=== PATIENT | female | born 1955 | race Caucasian/White ===

== ENCOUNTER → 2017-01-24 17:03 | Outpatient (CLI) | payer MEDICARE ==
[2015-07-22 07:51] VITALS: BMI 27.3
[~2017-01-24 17:03] MED LIST: EFFEXOR75 MG PO; GEMFIBROZIL600 MG PO; GLUCOPHAGE1000 MG PO; HYDROCODONE-APA1 TAB PO; KLONOPIN1 MG PO; LEVAQUIN500 MG PO; LYRICA150 MG PO; MACROBID100 MG PO; MEDROL DOSE PACK4 MG PO; NORVASC10 MG PO; NORVASC5 MG PO; PLAVIX75 MG PO; PRAVACHOL20 MG PO; ROBAXIN-750750 MG PO; STERAPRED DS 1210 MG PO; SYNTHROID50 MCG PO; ZESTORETIC 20-1 EACH PO
== END | disposition home or self-care (01) ==
LOC: D.MAMMO 01-10 10:00
DX: Z12.31 Encounter for screening mammogram for malignant neoplasm of breast (principal)

== ENCOUNTER 2017-08-03 16:29 | Observation (INO) | payer MEDICARE ==
[~2017-08-03] VITALS: Ht 162.6 cm; Wt 72.6 kg
--- NOTE | ~2017-08-03 | OP ---
PATIENT NAME: PAULA HOLT MEDICAL RECORD: [id number] :55 LOCATION:[facility] ADMISSION DATE:08/03/17 SURGEON: JOHNSON GODWIN MD DATE OF OPERATION: 08/04/2017 PROCEDURES: 1. PTCA stent RCA. 2. Left heart catheterization. 3. Selective coronary angiography. 4. Left ventriculogram. 5. Bilateral selective renal arteries angiography. INDICATION: Angina and coronary artery disease. PROCEDURE IN DETAIL: After informed consent was obtained and after a detailed risks and benefits as well as alternative therapies, the patient elected to proceed with angiogram and angioplasty. The right radial area was prepped and draped in normal sterile fashion. Right radial artery was cannulated via modified Seldinger technique with placement of 6-Kazakh sheath. All catheter exchanged through the sheath. FINDINGS: 1. 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 No significant renal artery stenosis. 2. The left renal artery is a solitary artery off the aorta with no significant pressure damping, no renal artery stenosis. 3. The left ventriculogram was performed in standard 30-degree MUSE view reveals good cardiac wall motion throughout all segments. Overall ejection fraction is 60%. 4. The left main is with no significant angiographic disease. 5. Left anterior descending has a 70% to 80% stenosis in mid vessel, otherwise only mild irregularities. 6. The left circumflex has previously placed stents proximally with greater than 70% in-stent restenosis. 7. The right coronary artery has multiple areas previously placed stents. There is one area of 80% in-stent restenosis in the mid distal vessel. PTCA STENT OF THE RCA: The stent used was a 3.0 x 15 mm [place], taken to 21 atmospheres. Result was 0% residual stenosis. OVERALL IMPRESSION: Successful percutaneous transluminal angioplasty stent of the right coronary artery going from 80% initial stenosis to 0% residual. PLAN: Plan for PTCA stent of the LAD and circumflex in the near future. TRANSINT:[id number] Voice Confirmation ID: [id number] DOCUMENT ID: [id number] OPERATIVE REPORT [id number] PAULA HOLT JOHNSON GODWIN MD at 1052 CC: [id number] DICTATION DATE: 08/04/17 1021 DIGITAL DESIGNER: 08/04/17 1124 DIS IN 08/04/17 [facility] [address] [place] [address]
--- NOTE | ~2017-08-03 | HEMODYNAMI ---
PATIENT:PAULA HOLT MEDICAL RECORD: [id number] : 55 [facility] [id number] ADMISSION DATE: 08/03/17 Generatedon:08/04/201710:24 Patient name: PAULA HOLT Patient #: [id number] SSN: : Date of study: 08/04/2017 Page: Of Hemodynamic Procedure Report Patient Data Patient Demographics Procedure consent was obtained First Name: PAULA Gender: Female Last Name: JONATHON : 1955 [facility] Initial: EDITH Age: 61 year(s) Patient #: [id number] Race: Additional ID: [id number] Contact details Address: [address] [place] [address] ROAD State: [place] City: [place] Zip code: [address] Past Medical History Allergies Allergen Reaction Date Comments Reported Other allergy 07/22/2015 IV Dye, Niacin IV contrast dye 08/04/2017 Other allergy 08/04/2017 NIACIN Admission Admission Data Admission Date: 08/03/2017 Admission Time: 17:49 Room #: D.2116 Lab Results Lab Result Date: 08/04/2017 Lab Result Time: 0:00 Biochemistry Name Units Result Min Max BUN mg/dl 17 --(---*)-- 7 18 Creatinine mg/dl 0.8 --(-*--)-- 0.6 1.3 CBC Name Units Result Min Max Hemoglobin g/dl 14.8 --(-*--)-- 13.5 17.5 Procedure Procedure Types Cath Procedure Diagnostic Procedure LHC LHC w/Coronaries Sedation Charges Moderate Sedation up to 15 minutes PCI Procedure Coronary Stent Coronary Stent Initial Peripheral Cath Diagnostic Procedure Abd/Extremity Renal Bilat Renal Arteriogram Procedure Description Procedure Date Procedure Date: 08/04/2017 Procedure Start Time: 10:06 Procedure End Time: 10:19 Procedure Staff Name Function Thai Cody RT Monitor Vaibhav Moreau RN Nurse Timur Shah MD Performing Physician Dorita Parks RT Scrub Procedure Data Cath Procedure Fluoroscopy Diagnostic fluoroscopy Total fluoroscopy Time: 2.9 time: 2.9 min min Diagnostic fluoroscopy Total fluoroscopy dose: 142 dose: 142 mGy mGy Contrast Material Contrast Material Type Amount (ml) Isovue 300 77 Entry Location Entry Primary Successful Side Size Upsize Upsize Entry Closure Ruffin ccessful Closure Location (Fr) 1 (Fr) 2 (Fr) Remarks Device Remarks Radial Right 6 Fr Mechanical artery Short Compression Estimated blood loss: 10 ml Diagnostic catheters Device Type Used For End Catheter Placement DIAGNOSTIC [place] 110cm 5 Procedure Fr catheter ([id number]) Merit Impress Hester Procedure 5Fr 125CM catheter ([id number]) Procedure Complications No complications Procedure Medications Medication Administration Route Dosage Oxygen etCO2 Nasal cannula 2 l/min Heparin Flush Bag added to field 2 bags (1000units/500ml NS) 0.9% NaCl I.V. 100 ml/hr Radial Cocktail added to field 1 syringe (Verapomil 2mg/Nitro 400mcg/Heparin 1500units) Fentanyl I.V. 50 mcg Versed I.V. 1 mg Fentanyl I.V. 50 mcg Versed I.V. 1 mg Fentanyl I.V. 50 mcg Fentanyl I.V. 50 mcg Heparin Bolus I.V. 4000 units Radial Cocktail I.A. 1 syringe (Verapomil 2mg/Nitro 400mcg/Heparin 1500units) Hemodynamics Rest HGB: 14.8 (g/dl) Heart Rate: 83 (bpm) Snapshots Pre Cath Intra NCS Post Cath Vital Signs Time Heart Resp SPO2 etCO2 NIBP (mmHg) Rhythm Pain Sedation Rate (ipm) (%) (mmHg) Status Level (bpm) 9:52:04 83 16 93 0 214/115(178) NSR 0 (11) 10(A) , No pain 9:56:51 78 16 96 24.6 210/117(160) NSR 0 (11) 10(A) , No pain 10:01:25 74 17 94 16.4 160/93(131) NSR 0 (11) 9(A) , No pain 10:05:54 77 17 94 32.9 156/96(133) NSR 0 (11) 9(A) , No pain 10:10:12 82 17 96 23.1 110/70(88) NSR 0 (11) 9(A) , No pain 10:14:24 78 18 95 20.2 113/77(91) NSR 0 (11) 9(A) , No pain 10:18:36 75 17 93 32.1 129/81(105) NSR 0 (11) 10(A) , No pain Medications Time Medication Route Dose Verified Delivered Reason Not es Effectiveness by by 9:54:55 Oxygen etCO2 2 l/min Timur Esposito Per physician Nasal Alyssa Moreau RN cannula 9:55:04 Heparin Flush added 2 bags Timur Esposito used for Bag to Alyssa Moreau RN procedure (1000units/500ml field NS) 9:55:16 0.9% NaCl I.V. 100 Timuryohnaa Esposito Per physician ml/hr Alyssa Moreau RN 9:55:25 Radial Cocktail added 1 Timur Esposito used for (Verapomil to syringe Alyssa Moreau RN procedure 2mg/Nitro field 400mcg/Hepari 10:00:22 Fentanyl I.V. 50 mcg Timur Esposito for sedation Alyssa Moreau RN 10:00:31 Versed I.V. 1 mg Timur Esposito for sedation Alyssa Moreau RN 10:06:50 Fentanyl I.V. 50 mcg Timur Esposito for sedation Alyssa Moreau RN 10:06:55 Versed I.V. 1 mg Timur Esposito for sedation Alyssa Moreau RN 10:07:40 Radial Cocktail I.A. 1 Timur Ding for (Verapomil syringe Alyssa Shah MD vasodilation 2mg/Nitro 400mcg/Hepari 10:08:42 Fentanyl I.V. 50 mcg Timur Esposito for sedation Alyssa Moreau RN 10:12:37 Fentanyl I.V. 50 mcg Timur Esposito for sedation Alyssa Moreau RN 10:12:50 Heparin Bolus I.V. 4000 Timur Hyatty for units Alyssa Moreau RN anticoagulation Procedure Log Time Note 9:30:42 Time tracking: Regular hours 9:30:47 Plan of Care:Hemodynamics will remain stable., Cardiac rhythm will remain stable., Comfort level will be maintained., Respiratory function will remain adequate., Patient/ family verbilizes understanding of procedure., Procedure tolerated without complication., Recovers from procedure without complications.. 9:30:48 Signed procedure consent form obtained from patient. 9:31:25 Lab Result : Hemoglobin 14.8 g/dl 9::25 Lab Result : Creatinine 0.8 mg/dl 9::25 Lab Result : BUN 17 mg/dl 9:32:05 Thai PINEDO(R) sent for patient. Start room use. 9:45:22 Patient received from PCU to CCL 3 Alert and oriented. Tansferred to table in Supine position. 9:45:23 Correct patient and procedure confirmed by team. 9:45:23 Warm blankets applied, and luis alberto hugger turned on for patient comfort. 9:45:24 ECG and BP/O2 sat monitors applied to patient. 9:49:09 Vital chart was started 9:51:10 Baseline sample Acquired. 9:51:15 Rhythm: sinus rhythm 9:51:16 Full Disclosure recording started 9:51:18 Pre-op teaching completed and patient verbalized understanding. 9:51:18 Pre-procedure instructions explained to patient. 9:51:21 Family unavailable. 9:51:23 Patient NPO since Midnight. 9:51:43 Patient allergic to IV contrast dye 9:51:54 Patient allergic to Other allergyNIACIN 9:51:56 Is the patient allergic to Iodine/contrast media? Yes. 9:51:57 Is patient on blood thinner?Yes 9:51:57 Was the patient premedicated? Yes 9:52:04 ACC The patient was administered the following blood thiners within the last 24 hours: ACCPlavix 9:52:18 Patient diabetic? No. 9:54:06 Patient not . Patient is over age 55. 9:54:09 Previous problem with sedation/anesthesia? No ? 9:54:10 Snore? Yes 9:54:11 Sleep apnea? No 9:54:12 Opens mouth fully? Yes 9:54:12 Deviated septum? No 9:54:13 Sticks out tongue? Yes 9:54:15 Airway obstruction? Yes COPD 9:54:19 Dentures? Yes OUT 9:54:21 Modified Rogerio's test Ulnar < 7 seconds 9:54:24 Patient pain scale 0/10 ?. 9:54:29 IV patent on arrival in left antecubital with 0.9% NaCl at KVO. 9:54:31 Lab results completed and on chart. 9:54:34 Right Radial & Right Groin area was prepped with chlora-prep and draped in sterile fashion 9:54:35 Sharps counted by scrub and verified by R.N. 9:54:35 Alarms reviewed by R. N. 9:54:38 Use device set Radial Dx or PCI 9:54:39 ACIST Syringe (77935) opened to sterile field. 9:54:41 ACIST Hand Control (46187) opened to sterile field. 9:54:41 ACIST Manifold (43422) opened to sterile field. 9:54:42 Tegaderm 4 x 4 (1626W) opened to sterile field. 9:54:47 Bag Decanter (2002S) opened to sterile field. 9:54:48 Medline Cath Pack ([id number]) opened to sterile field. 9:54:49 DIAGNOSTIC WIRE .035 260cm J wire (127274) opened to sterile field. 9:54:50 SHEATH 6FR Slender ([id number]) opened to sterile field. 9:54:55 Oxygen 2 l/min etCO2 Nasal cannula was administered by Vaibhav Moreau RN; Per physician; 9:55:04 Heparin Flush Bag (1000units/500ml NS) 2 bags added to field was administered by Vaibhav Moreau RN; used for procedure; 9:55:16 0.9% NaCl 100 ml/hr I.V. was administered by Vaibhav Moreau RN; Per physician; 9:55:25 Radial Cocktail (Verapomil 2mg/Nitro 400mcg/Heparin 1500units) 1 syringe added to field was administered by Vaibhav Moreau RN; used for procedure; 9:59:53 Zero performed for pressure channel P1 10:00:07 Zero performed for pressure channel P1 10:00:09 Final Timeout: patient, procedure, and site verified with staff and physician. All members of the team are in agreement. 10:00:10 Right Radial & Right Groin site verified by team. 10:00:13 Physical assessment completed. ASA score P 2 - A patient with mild systemic disease as per Timur Shah MD. 10:00:16 Sedation plan: IV Moderate Sedation Medication:Versed, Fentanyl 10:00:22 Fentanyl 50 mcg I.V. was administered by Vaibhav Moreau RN; for sedation; 10:00:31 Versed 1 mg I.V. was administered by Vaibhav Moreau RN; for sedation; 10:06:00 Procedure started. 10:06:06 Local anesthetic to right radial artery with Lidocaine 2% by Timur Shah MD.INITIAL ACCESS ONLY 10:06:50 Fentanyl 50 mcg I.V. was administered by Vaibhav Moreau RN; for sedation; 10:06:55 Versed 1 mg I.V. was administered by Vaibhav Moreau RN; for sedation; 10:07:35 A 6 Fr Short sheath was inserted into the Right Radial artery 10:07:40 Radial Cocktail (Verapomil 2mg/Nitro 400mcg/Heparin 1500units) 1 syringe I.A. was administered by Timur Shah MD; for vasodilation; 10:08:08 A DIAGNOSTIC [place] 110cm 5 Fr catheter (546683) was advanced over the wire and used for Procedure. 10:08:23 LV gram done using MUSE 10:08:27 Injector settings: Ml/sec: 7, Volume: 15, 10:08:42 Fentanyl 50 mcg I.V. was administered by Vaibhav Moreau RN; for sedation; 10:08:46 EF : 60 % 10:09:08 LCA angiography performed. 10:09:49 RCA angiography performed. 10:09:55 Catheter removed. 10:10:05 INFLATOR Merit BasixCompak (RJ9590) opened to sterile field. 10:10:17 CHOICE PT Extra Support 182cm wire ([id number]) opened to sterile field. 10:10:59 A AB Group Hester 5Fr 125CM catheter ([id number]) was advanced over the wire and used for Procedure. 10:11:33 Bilateral renal angiography performed. 10:11:37 Catheter removed. 10:11:56 GUIDE 6FR AR 2.0 SH catheter ([id number]) opened to sterile field. 10:12:08 6 Fr AR2 SH guide catheter was inserted over the wire 10:12:37 Fentanyl 50 mcg I.V. was administered by Vaibhav Moreau RN; for sedation; 10:12:50 Heparin Bolus 4000 units I.V. was administered by Vaibhav Moreau RN; for anticoagulation; 10:13:18 CHOICE ES 182 wire advanced. 10:13:27 Wire advanced across lesion. 10:15:09 Place stent Inflation Number: 1 A SALOME RX 3.0 x 15 stent ([id number]) was prepped and advanced across the Mid RCA. The stent was deployed at 21 JOY for 0:10 (min:sec). 10:15:26 Inflation number: 2 The stent balloon was then re-inflated across the Mid RCA to 21 JOY for 0:10 (min:sec). 10:15:57 Stent catheter was removed intact over wire. 10:15:58 Wire removed. 10:15:59 Guide catheter removed. 10:16:01 TR BAND Standard ([id number]) opened to sterile field. 10:16:30 Procedure ended.(Physican Out) 10:17:46 Sheath removed intact; hemostasis achieved with Mechanical Compression to the Right Radial artery. 10:18:07 Fluoroscopy time 02.90 minutes. 10:18:16 Fluoroscopy dose: 142 mGy 10:18:16 Flurop Dose total: 142 10:18:19 Contrast amount:Isovue 300 77ml. 10:18:20 Sharps counted by scrub and verified by R.N. 10:18:23 TR band inflated with 12cc of air. 10:18:28 Post-procedure physical assessment completed. ASA score P 2 - A patient with mild systemic disease as per Timur Shah MD. 10:18:30 Post procedure rhythm: unchanged. 10:18:32 Estimated blood loss: 10 ml 10:18:33 Patient needs reinforcement of post procedure teaching. 10:18:33 Post procedure instruction explained to patient.Patient verbalizes understanding. 10:19:02 Procedure type changed to Cath procedure, Diagnostic procedure, LHC, LHC w/Coronaries, Sedation Charges, Moderate Sedation up to 15 minutes, PCI procedure, Coronary Stent, Coronary Stent Initial, Peripheral Cath Diagnostic Procedure, Abd/Extremity, Renal, Bilat Renal Arteriogram 10:19:29 Procedure and supply charges have been captured, reviewed, submitted and are correct. 10:19:35 Procedure Complication : No complications 10:19:37 Vital chart was stopped 10:19:38 See physician's report for complete and final results. 10:19:40 Report given to PCU. 10:19:43 Patient transfered to PCU with Bed. 10:19:45 Full Disclosure recording stopped 10:19:45 Procedure ended. 10:19:50 End room use (Document Last) Intervention Summary Intervention Notes Time ActionType Lesion and Equipment Used Action# Pressure Duration Attributes 10:15:09 Place stent Mid RCA SALOME RX 3.0 x 1 21 00:10 15 stent ([id number]) 10:15:26 Reinflate Mid RCA SALOME RX 3.0 x 2 21 00:10 stent 15 stent balloon ([id number]) Device Usage Item Name Manufacture Quantity Catalog Number Hospital Part Current M inimal Lot# / Charge Number Stock Stock Serial# Code ACIST Syringe Acist 1 42041 703305 535275 505081 2 0 (93422) Medical Systems Inc ACIST Manifold Acist 1 75697 401002 359087 315793 5 (16592) Medical Systems Inc ACIST Hand Acist 1 99633 362518 241386 924959 5 Control Medical (50227) Systems Inc Tegaderm 4 x 4 3M 1 1626W 125518 606633 682341 5 (1626W) Bag Decanter Microtek 1 2002S 481680 05601 496150 5 (2001S) Medical Inc. Medline Cath Cardinal 1 [id number] 936806 75398 406366 5 AcuityAds ([id number]) DIAGNOSTIC [place] 1 735384 724160 495720 367153 3 0 WIRE .035 260cm J wire (571116) SHEATH 6FR Terumo 1 [id number] 315037 085518 822543 4 0 Slender ([id number]) DIAGNOSTIC Terumo 1 40-8283 725310 194455 144377 5 [place] 110cm 5 Fr catheter (516266) INFLATOR Merit Merit 1 CO1685 900195 895896 132590 1 5 Quantum [employer] TechnologieswaiSIGHT Partners ([id number]) CHOICE PT [place] 1 [id number] 842611 006842 633780 5 Extra Support Scientific 182cm wire ([id number]) Merit Impress Merit 1 [id number] 534045 959213 191872 5 Hester 5Fr Medical 125CM catheter ([id number]) GUIDE 6FR AR Medtronic 1 [id number] 838789 95332 911289 1 2.0 SH catheter ([id number]) SALOME RX 3.0 x Medtronic 1 [id number] 770801 3929222 696387 5 [id number] 15 stent ([id number]) TR BAND Terumo 1 [id number] 014363 152212 133040 4 0 Standard ([id number]) Signature Audit Gautier Stage Time Signature Unsigned Intra-Procedure 08/04/2017 Dorita Parks RT(R) 10:21:08 AM RT(R) 08/04/2017 10:22:13 AM Intra-Procedure 08/04/2017 Dorita Parks 10:24:11 AM RT(R) Signatures Monitor : Thai Cody RT Signature : Date : Time : [place] [id number] [place] [address]
[2017-08-03 17:11] LABS: BASOPHILS 0.3 % (0-2); EOSINOPHILS 2.6 % (0-7); HEMATOCRIT 41.4 % (36.0-48.0); HEMOGLOBIN 14.8 g/dL (12-16); IMMATURE GRANULOCYTES 0.2 % (0-5); LYMPHOCYTES 35.1 % (15-50); MCH 31.2 pg (26.0-34.0); MCHC 35.7 g/dL (31.0-37.0); MCV 87.3 fL (80.0-100.0); MEAN PLATELET VOLUME 10.7 fL (7.4-10.4); MONOCYTES 6.5 % (2-11); NEUTROPHILS 55.3 % (40-80); PLATELET COUNT 184 10x3/uL (130-400); RBC 4.74 10x6/uL (4.00-5.40); RDW 12.8 % (11.5-14.5); WBC 12.3 10x3/uL (4.8-10.8)
[2017-08-03 17:15] LABS: ALBUMIN 3.7 g/dL (3.4-5.0); ALKALINE PHOSPHATASE 86 U/L (46-116); ALT (SGPT) 46 U/L (10-68); CALC OSMOLALITY 279 mosm/kg (275-300); CALCIUM 9.1 mg/dL (8.5-10.1); CARBON DIOXIDE 28.5 mmol/L (21.0-32.0); CHLORIDE - SERUM 98 mmol/L (98-107); CREATININE - SERUM 0.9 mg/dL (0.6-1.3); GLUCOSE 210 mg/dL (74-106); POTASSIUM - SERUM 3.4 mmol/L (3.5-5.1); PROTEIN - SERUM 8.3 g/dL (6.4-8.2); SODIUM 137 mmol/L (136-145); UREA NITROGEN 12 mg/dL (7-18); eGFR NON AFRICAN AMERICAN 67 mL/min (90-120)
[2017-08-03 17:27] LABS: CHOL - HDL RATIO 9.3 ratio (2.3-4.1); CHOLESTEROL, TOTAL 224 mg/dL (0-200); CKMB 0.8 U/L (0.0-3.6); CREATINE KINASE 112 UL (21-215); HDL CHOLESTEROL 24 mg/dL (32-96); TROPONIN-I < 0.017 ng/mL (0.000-0.060)
[2017-08-03 17:31] LABS: TRIGLYCERIDE 871 mg/dL (30-200)
[2017-08-03 19:55] LABS: APPEARANCE HAZY (CLEAR); BILIRUBIN NEGATIVE (NEGATIVE); COLOR YELLOW (YELLOW); GLUCOSE 250 mg/dL (NEGATIVE); KETONE NEGATIVE (NEGATIVE); NITRITE NEGATIVE (NEGATIVE); PROTEIN 1+ mg/dL (NEGATIVE); UROBILINOGEN NORMAL (NORMAL)
[2017-08-03 19:56] LABS: WHITE CELLS - URINE 0-5 /hpf (0-5)
[2017-08-03 19:57] LABS: BACTERIA MANY /hpf (NONE SEEN); RED CELLS - URINE OCC /hpf (0-5)
[2017-08-03 19:58] LABS: EPITHELIAL CELLS OCC /hpf (0-5)
[2017-08-03 20:00] VITALS: BP 131/79
[2017-08-03] MEDS ORDERED: TRADJENTA5 MG PO (20:13)
[2017-08-03] MEDS ORDERED: ULTRAM50 MG PO (20:14)
[2017-08-03] MEDS ORDERED: TOVIAZ8 MG PO (20:16)
[2017-08-03] MEDS ORDERED: BAYER CHEWABLE81 MG PO (20:17)
[2017-08-03] MEDS ORDERED: NITROQUICK0.4 MG SL (20:18)
[2017-08-03] MEDS ORDERED: ADVAIR 250/501 DISK INH (20:18)
[2017-08-03] MEDS ORDERED: VITAMIN E400 UNI2 PO (20:19)
[2017-08-04] VITALS: BP 146/66
[2017-08-04 04:00] VITALS: BP 170/92
[2017-08-04 06:51] VITALS: Ht 162.6 cm; Wt 72.6 kg
[2017-08-04 07:16] LABS: CALC OSMOLALITY 290 mosm/kg (275-300); CALCIUM 8.4 mg/dL (8.5-10.1); CARBON DIOXIDE 27.2 mmol/L (21.0-32.0); CHLORIDE - SERUM 101 mmol/L (98-107); CREATININE - SERUM 0.8 mg/dL (0.6-1.3); GLUCOSE 283 mg/dL (74-106); POTASSIUM - SERUM 3.3 mmol/L (3.5-5.1); SODIUM 140 mmol/L (136-145); eGFR NON AFRICAN AMERICAN 77 mL/min (90-120)
[2017-08-04 07:17] LABS: UREA NITROGEN 17 mg/dL (7-18)
[2017-08-04 08:30] LABS: BASOPHILS 0.3 % (0-2); EOSINOPHILS 3.2 % (0-7); HEMATOCRIT 40.5 % (36.0-48.0); HEMOGLOBIN 14.2 g/dL (12-16); IMMATURE GRANULOCYTES 0.2 % (0-5); LYMPHOCYTES 33.9 % (15-50); MCH 30.9 pg (26.0-34.0); MCHC 35.1 g/dL (31.0-37.0); MEAN PLATELET VOLUME 11.1 fL (7.4-10.4); MONOCYTES 7.5 % (2-11); NEUTROPHILS 54.9 % (40-80); PLATELET COUNT 176 10x3/uL (130-400); RDW 13.2 % (11.5-14.5); WBC 9.7 10x3/uL (4.8-10.8)
[2017-08-04 09:56] VITALS: BP 183/98
[2017-08-04] MEDS ORDERED: PLAVIX75 MG PO (11:23)
== END 2017-08-04 15:00 | disposition home or self-care (01) ==
LOC: D.ER 16:29 → D.M2 17:49 → D.EDHOLD 17:49 → OBSVTIME 17:49 → D.CLR 17:49 → D.MS 18:36 → D.M2 18:40 → D.CLR 08-04 10:31
PROVIDERS: Emergency Medicine; Internal Medicine Interventional Cardiology
DX: T82.855A Stenosis of coronary artery stent, initial encounter (principal); I25.119 Atherosclerotic heart disease of native coronary artery with unspecified angina pectoris; Z95.5 Presence of coronary angioplasty implant and graft; Y83.8 Other surgical procedures as the cause of abnormal reaction of the patient, or of later complication, without mention of misadventure at the time of the procedure
CPT/HCPCS: 93458; 36252; C9600

== ENCOUNTER 2017-08-08 08:03 | Outpatient (CLI) | payer MEDICARE ==
[~2017-08-08] VITALS: Ht 162.6 cm; Wt 71.4 kg
--- NOTE | ~2017-08-08 | OP ---
PATIENT NAME: PAULA HOLT MEDICAL RECORD: [id number] :55 LOCATION:D.CAT ADMISSION DATE: SURGEON: JOHNSON GODWIN MD DATE OF OPERATION: 08/08/2017 PROCEDURES: 1. PTCA stent LAD. 2. Selective coronary angiography. INDICATION: Angina and coronary artery disease. PROCEDURE IN DETAIL: After informed consent was obtained and after detailed discussion of risks, benefits as well as alternative therapies, the patient elected to proceed with angiogram and angioplasty. The right radial area is prepped, draped in normal sterile fashion. Right radial artery was cannulated via modified Seldinger technique with placement of 6-Nepali sheath. All catheters exchanged through the sheath. FINDINGS: The left circumflex does not appear to be hemodynamically significant with adequate filling of the vessel. We turned our attention to the LAD. The LAD has an 80% stenosis in the mid vessel. This was addressed with a 3.0 x 15 mm [place] stent. Result was 0% residual stenosis. OVERALL IMPRESSION: Successful percutaneous transluminal angioplasty stent of the left anterior descending going from 80% initial stenosis to 0% residual. TRANSINT:[id number] Voice Confirmation ID: [id number] DOCUMENT ID: [id number] JOHNSON GODWIN MD at 1056 CC: [id number] DICTATION DATE: 08/08/17 1056 INFORMATICA MDM DEVELOPER: 08/08/17 1237 DEP CLI 08/08/17 [place] [id number] [place] [id number]
--- NOTE | ~2017-08-08 | HP ---
PATIENT: PAULA LITTLE MEDICAL RECORD: [id number] ACCOUNT: [id number] LOCATION:[facility] : 55 ADMISSION DATE: 08/08/17 HISTORY AND PHYSICAL EXAMINATION ADMITTING DIAGNOSES: 1. Angina. 2. Coronary artery disease. 3. Recent percutaneous transluminal coronary angioplasty stent of the RCA with concomitant disease of LAD and circumflex. HISTORY OF PRESENT ILLNESS: Mrs. Little presents with anginal symptomatology, unstable, found to have 3-vessel coronary artery disease, underwent successful PTCA stent of the RCA. She is now brought back for PTCA stent of the LAD and circumflex. REVIEW OF SYSTEMS: The patient reports easy bruising but reports no swollen glands. The patient reports no fever, no night sweats, no significant weight gain, no significant weight loss. No significant exercise tolerance. The patient reports no dry eyes, no irritation, no vision change. Patient reports no difficulty hearing and no ear pain. Patient reports no frequent nose bleeds or nose and sinus problems. Patient reports on arm pain on exertion. No shortness of breath while lying down. No history of heart murmur. Patient reports no cough, no wheezing or coughing up blood. Patient reports no abdominal pain, no vomiting. Normal appetite. No diarrhea and not vomiting blood. No nausea and no constipation. Patient reports no incontinence. No difficulty urinating. No hematuria. No increased frequency. Patient reports no muscle aches. No weakness, no arthralgias, no back pain. No swelling of the extremities. Patient reports no abnormal mole, no jaundice, no rashes. Reports no loss of consciousness. No weakness and no numbness. No seizures, dizziness, or headaches. The patient reports no depression, no sleep disturbance, feeling safe in a relationship and no alcohol abuse. Patient reports on fatigue. Reports no runny nose or sinus pressure. No itching, no hives, and no frequent sneezing. PHYSICAL EXAMINATION: GENERAL APPEARANCE: Well-nourished, well-developed, appears stated age. Level of distress, comfortable. PSYCHIATRIC: Mental status, alert, normal affect. Orientation, oriented to time, place and person. EYES: Lids and conjunctiva, noninjected. No discharge, no pallor. ENT: Lips, teeth, gums, normal dentition. Oropharynx, no cyanosis, no pallor. NECK: Carotid arteries, bilateral normal upstroke, no bruits, no thrills. JUGULAR VEINS: No jugular venous pressure or distention. CERVICAL LYMPH NODES: Nontender, nonenlarged. THYROID: Not enlarged. Nontender. No nodules. LUNGS: Respiratory effort, unlabored. CHEST: Normal curvature. No thoracic deformity. No chest wall tenderness. Percussion, resonant. Auscultation, clear. No wheezes, no rales, no rhonchi. CARDIOVASCULAR: Precordial exam, nondisplaced. No heaves or pericardial thrills. Rate and rhythm, regular. Heart sounds, normal S1, normal S2. No S3, no gallop, no rub. Systolic murmur, not heard. Diastolic murmur, not heard. EXTREMITIES: No cyanosis, no edema. Peripheral pulses, full and equal in all extremities, except as noted. No bruits appreciated. ABDOMEN: Soft, nondistended. Normal aorta. No bruit. Nontender. No masses. HISTORY AND PHYSICAL [id number] PAULA LITTLE Liver, nontender, no hepatomegaly. Spleen, nontender, no splenomegaly. MUSCULOSKELETAL: No joint tenderness. No joint swelling. No erythema. NEUROLOGICAL: Normal gait, normal strength, normal tone. SKIN: Warm and dry. OVERALL IMPRESSION: Anginal symptomatology with significant disease of the LAD and circumflex. We will proceed with percutaneous transluminal coronary angioplasty stent of the LAD and circumflex. TRANSINT:[id number] Voice Confirmation ID: [id number] DOCUMENT ID: [id number] JOHNSON GODWIN MD at 1056 CC: [id number] DICTATION DATE: 08/08/17 0839 TYPING POOL SUPERVISOR: 08/08/17 0908 DEP CLI 08/08/[address] [address]
--- NOTE | ~2017-08-08 | HEMODYNAMI ---
PATIENT:PAULA HOLT MEDICAL RECORD: [id number] : 55 LOCATION:D.CAT ADMISSION DATE: 08/08/17 Generatedon:08/08/201710:59 Patient name: PAULA HOLT Patient #: [id number] SSN: : Date of study: 08/08/2017 Page: Of Hemodynamic Procedure Report Patient Data Patient Demographics Procedure consent was obtained First Name: PAULA Gender: Female Last Name: JONATHON : 1955 [facility] Initial: EDITH Age: 61 year(s) Patient #: [id number] Race: Additional ID: [id number] Contact details Address: [address] [place] [address] RO[address] State: [place] City: [place] Zip code: [address] Past Medical History Allergies Allergen Reaction Date Comments Reported Other allergy 07/22/2015 IV Dye, Niacin IV contrast dye 08/04/2017 Other allergy 08/04/2017 NIACIN Admission Admission Data Admission Date: 08/08/2017 Admission Time: 8:03 Lab Results Lab Result Date: 08/08/2017 Lab Result Time: 0:00 Biochemistry Name Units Result Min Max BUN mg/dl 33 --(----)-* 7 18 Creatinine mg/dl 1.3 --(---*)-- 0.6 1.3 CBC Name Units Result Min Max Hemoglobin g/dl 14.8 --(-*--)-- 13.5 17.5 Procedure Procedure Types Cath Procedure PCI Procedure Coronary Stent Coronary Stent Initial Procedure Description Procedure Date Procedure Date: 08/08/2017 Procedure Start Time: 10:48 Procedure End Time: 10:57 Procedure Staff Name Function Timur Shah MD Performing Physician Thai Cody RT Monitor Dorita Parks RT Scrub Davis Tilley RN Nurse Procedure Data Cath Procedure Fluoroscopy Diagnostic fluoroscopy Total fluoroscopy Time: 1.2 time: 1.2 min min Diagnostic fluoroscopy Total fluoroscopy dose: 151 dose: 151 mGy mGy Contrast Material Contrast Material Type Amount (ml) Isovue 300 25 Entry Location Entry Primary Successful Side Size Upsize Upsize Entry Closure Ruffin ccessful Closure Location (Fr) 1 (Fr) 2 (Fr) Remarks Device Remarks Radial Right 6 Fr Mechanical artery Short Compression Estimated blood loss: 10 ml Procedure Complications No complications Procedure Medications Medication Administration Route Dosage Oxygen NC 2 l/min Lidocaine 2% added to field 20 Heparin Flush Bag added to field 2 bags (1000units/500ml NS) 0.9% NaCl I.V. 100 ml/hr Radial Cocktail I.A. 1 syringe (Verapomil 2mg/Nitro 400mcg/Heparin 1500units) Versed I.V. 2 mg Fentanyl I.V. 50 mcg Versed I.V. 1 mg Fentanyl I.V. 50 mcg Heparin Bolus I.V. 4000 units Versed I.V. 1 mg Hemodynamics Rest HGB: 14.8 (g/dl) Heart Rate: 82 (bpm) Snapshots Pre Cath Intra NCS Post Cath Vital Signs Time Heart Resp SPO2 etCO2 NIBP (mmHg) Rhythm Pain Sedation Rate (ipm) (%) (mmHg) Status Level (bpm) 10:32:41 84 15 93 36.3 138/82(109) NSR 0 (11) 10(A) , No pain 10:36:51 86 14 92 38.6 128/91(107) NSR 0 (11) 10(A) , No pain 10:41:03 81 12 92 20.4 124/74(94) NSR 0 (11) 10(A) , No pain 10:45:12 79 12 92 30.3 117/73(100) NSR 0 (11) 10(A) , No pain 10:49:22 82 13 94 36.3 111/67(89) NSR 0 (11) 9(A) , No pain 10:53:28 85 13 93 35.5 102/69(87) NSR 0 (11) 9(A) , No pain 10:57:16 84 14 94 34.8 115/73(89) NSR 0 (11) 10(A) , No pain Medications Time Medication Route Dose Verified Delivered Reason Note s Effectiveness by by 10:32:09 Oxygen NC 2 l/min Timur Cannon used for Alyssa Tilley RN procedure 10:32:15 Lidocaine 2% added 20ml Timur Ding for local to vial Alyssa Shah MD anesthetic field 10:32:21 Heparin Flush added 2 bags Timur Ding used for Bag to Alyssa Shah MD procedure (1000units/500ml field NS) 10:32:31 0.9% NaCl I.V. 100 Timur Cannon Per physician ml/hr Alyssa Tilley RN 10:47:11 Versed I.V. 2 mg Timur Marieie for sedation Alyssa Tilley RN 10:47:17 Fentanyl I.V. 50 mcg Timur Marieie for sedation Alyssa Tilley RN 10:49:27 Radial Cocktail I.A. 1 Timur Ding for (Verapomil syringe Alyssa Shah MD vasodilation 2mg/Nitro 400mcg/Heparin 1500units) 10:49:33 Versed I.V. 1 mg Timur Marieie for sedation Alyssa Tilley RN 10:49:38 Fentanyl I.V. 50 mcg Timur Cannon for sedation Alyssa Tilley RN 10:51:11 Heparin Bolus I.V. 4000 Timur Cannon for veri fied units Alyssa Tilley RN anticoagulation with dr shah 10:53:39 Versed I.V. 1 mg Timur Cannon for sedation Alyssa Tilley RN Procedure Log Time Note 9:55:34 Thai Cody RT(R) sent for patient. Start room use. 10:12:48 Time tracking: Regular hours 10:12:55 Plan of Care:Hemodynamics will remain stable., Cardiac rhythm will remain stable., Comfort level will be maintained., Respiratory function will remain adequate., Patient/ family verbilizes understanding of procedure., Procedure tolerated without complication., Recovers from procedure without complications.. 10:12:56 Signed procedure consent form obtained from patient. 10:13:02 H&P Date Dictated: 08/08/2017 Within 30 days and on chart., H&P Addendum completed by physician on day of procedure. (MUST COMPLETE FOR ALL OUTPATIENTS). 10:14:11 Lab Result : BUN 33 mg/dl 10:14:11 Lab Result : Creatinine 1.3 mg/dl 10:14:11 Lab Result : Hemoglobin 14.8 g/dl 10:19:50 Patient received from Pre/Post Procedure Room to CCL 2 Alert and oriented. Tansferred to table in Supine position. 10:19:51 Warm blankets applied, and luis alberto hugger turned on for patient comfort. 10:19:51 Correct patient and procedure confirmed by team. 10:19:52 ECG and BP/O2 sat monitors applied to patient. 10:31:37 Vital chart was started 10::38 Baseline sample Acquired. 10:31:43 Baseline sample Acquired. 10:31:47 Rhythm: sinus rhythm 10:31:49 Full Disclosure recording started 10:31:50 Pre-procedure instructions explained to patient. 10::51 Pre-op teaching completed and patient verbalized understanding. 10:31:53 Family in patients room. 10:31:54 Patient NPO since Midnight. 10:31:57 Is the patient allergic to Iodine/contrast media? Yes. 10:31:57 Was the patient premedicated? Yes 10:31:59 Is patient on blood thinner?Yes 10:32:01 ACC The patient was administered the following blood thiners within the last 24 hours: ACCPlavix 10:32:03 Patient diabetic? Yes. 10:32:05 If diabetic: On Metformin? Yes 10:32:09 Oxygen 2 l/min NC was administered by Davis Tilley RN; used for procedure; 10:32:15 Lidocaine 2% 20ml vial added to field was administered by Timur Shah MD; for local anesthetic; 10:32:16 If on Metformin: Last Dose? 08/05/2017 10:32:18 Previous problem with sedation/anesthesia? No ? 10:32:21 Heparin Flush Bag (1000units/500ml NS) 2 bags added to field was administered by Timur Shah MD; used for procedure; 10:32:21 Snore? Yes 10:32:22 Sleep apnea? No 10:32:23 Deviated septum? No 10:32:24 Opens mouth fully? Yes 10:32:31 0.9% NaCl 100 ml/hr I.V. was administered by Davis Tilley RN; Per physician; 10:32:34 Sticks out tongue? Yes 10:32:43 Airway obstruction? Yes COPD 10:32:47 Dentures? No ? 10:32:50 Pre procedure: right dorsailis pedis pulse 1+ Palpable, but thready & weak; easily obliterated 10:32:53 Modified Rogerio's test Ulnar < 7 seconds 10:32:55 Patient pain scale 0/10 ?. 10:33:08 IV patent on arrival in left forearm with 0.9% NaCl at [facility]. 10:33:11 Lab results completed and on chart. 10:33:15 Right Radial & Right Groin area was prepped with chlora-prep and draped in sterile fashion 10:33:16 Alarms reviewed by R. N. 10:33:16 Sharps counted by scrub and verified by R.N. 10:33:24 Use device set Radial Dx or PCI 10:33:28 Use device set TAUTH PCI 10:33:33 Tegaderm 4 x 4 ([id number]) opened to sterile field. 10:33:34 ACIST Manifold (44548) opened to sterile field. 10:33:35 ACIST Hand Control (54251) opened to sterile field. 10:33:36 ACIST Syringe (36870) opened to sterile field. 10:33:36 Medline Cath Pack ([id number]) opened to sterile field. 10:33:37 Bag Decanter (2002S) opened to sterile field. 10:33:40 MBrace Wrist Support ([id number]) opened to sterile field. 10:33:44 INFLATOR Merit BasixCompak (RB7119) opened to sterile field. 10:33:47 CHOICE PT Extra Support 182cm wire ([id number]) opened to sterile field. 10:40:12 SHEATH 6Fr Prelude Radial ([id number]) opened to sterile field. 10:40:19 Physician paged 10:46:28 --------ALL STOP TIME OUT------ 10:46:33 Final Timeout: patient, procedure, and site verified with staff and physician. All members of the team are in agreement. 10:46:36 Right Radial & Right Groin site verified by team. 10:46:38 Physical assessment completed. ASA score P 2 - A patient with mild systemic disease as per Timur Shah MD. 10:46:43 Sedation plan: IV Moderate Sedation Medication:Versed, Fentanyl 10:47:11 Versed 2 mg I.V. was administered by Davis Tilley RN; for sedation; 10:47:17 Fentanyl 50 mcg I.V. was administered by Davis Tilley RN; for sedation; 10:48:29 GUIDE 6FR XBLAD 3.5 catheter ([id number]) opened to sterile field. 10:48:36 Procedure started. 10:48:40 Local anesthetic to right radial artery with Lidocaine 2% by Timur Shah MD.INITIAL ACCESS ONLY 10:49:05 A 6 Fr Short sheath was inserted into the Right Radial artery 10:49:27 Radial Cocktail (Verapomil 2mg/Nitro 400mcg/Heparin 1500units) 1 syringe I.A. was administered by Timur Shah MD; for vasodilation; 10:49:33 Versed 1 mg I.V. was administered by Davis Tilley RN; for sedation; 10:49:38 Fentanyl 50 mcg I.V. was administered by Davis Tilley RN; for sedation; 10:49:38 6 Fr XBLAD 3.5 guide catheter was inserted over the wire 10:51:11 Heparin Bolus 4000 units I.V. was administered by Davis Tilley RN; for anticoagulation; verified with dr shah 10:51:35 Choice PT XS wire advanced. 10:51:44 Wire advanced across lesion. 10:52:45 Place stent Inflation Number: 1 A SALOME RX 3.0 x 15 stent ([id number]) was prepped and advanced across the Mid LAD. The stent was deployed at 15 JOY for 0:10 (min:sec). 10:53:39 Versed 1 mg I.V. was administered by Davis Tilley RN; for sedation; 10:53:59 TR BAND Standard ([id number]) opened to sterile field. 10:54:16 Sheath removed intact; hemostasis achieved with Mechanical Compression to the Right Radial artery. 10:56:18 Procedure ended.(Physican Out) 10:56:33 Fluoroscopy time 01.20 minutes. 10:56:37 Flurop Dose total: 151 10:56:37 Fluoroscopy dose: 151 mGy 10:56:41 Contrast amount:Isovue 300 25ml. 10:56:42 Sharps counted by scrub and verified by R.N. 10:56:44 TR band inflated with 10cc of air. 10:56:46 Insertion/operative site no bleeding no hematoma. 10:56:47 Post Procedure Pulses reassessed and unchanged 10:56:50 Post-procedure physical assessment completed. ASA score P 2 - A patient with mild systemic disease as per Timur Shah MD. 10:56:52 Post procedure rhythm: unchanged. 10:56:55 Estimated blood loss: 10 ml 10:56:56 Post procedure instruction explained to patient.Patient verbalizes understanding. 10:56:57 Patient needs reinforcement of post procedure teaching. 10:57:04 Procedure and supply charges have been captured, reviewed, submitted and are correct. 10:57:07 Procedure Complication : No complications 10:57:28 Vital chart was stopped 10:57:29 See physician's report for complete and final results. 10:57:34 Report given to Pre/Post Procedure Room. 10:57:38 Patient transfered to Pre/Post Procedure Room with Stretcher. 10:57:41 Procedure ended. 10:57:41 Full Disclosure recording stopped 10:58:34 End room use (Document Last) Intervention Summary Intervention Notes Time ActionType Lesion and Equipment Used Action# Pressure Duration Attributes 10:52:45 Place stent Mid LAD SALOME RX 3.0 x 1 15 00:10 15 stent ([id number]) Device Usage Item Name Manufacture Quantity Catalog Number Hospital Part Current Minimal Lot# / Charge Number Stock Stock Serial# Code Tegaderm 4 x 4 3M 1 [id number] [id number] 5 (1626W) ACIST Manifold Acist 1 06537 948471 223409 197966 5 (07414) [employer] ACIST Hand Acist 1 57003 798633 413965 825017 5 Control (53068) [employer] ACIST Syringe Acist 1 30837 497826 914173 851725 20 (07597) [employer] Inc Medline Cath Cardinal 1 [id number] 067546 80348 254375 5 Pack Health ([id number]) Bag Decanter Microtek 1 2001S 452489 56471 516747 5 (2001S) Medical Inc. MBrace Wrist Advanced 1 140-0250-00 060379 40521 654262 5 Support Vascular ([id number]) Dynamics INFLATOR Merit Merit 1 [id number] 374048 519700 991900 15 [email or web address] Medical (GR9255) CHOICE PT Extra [place] 1 [id number] 975606 743588 869952 5 Support 182cm Scientific wire ([id number]) GUIDE 6FR XBLAD Cardinal 1 [id number] 213117 787221 420966 10 3.5 catheter Health (41067845) SHEATH 6Fr Merit 1 [id number] 119509 093520 944223 5 Prelude Radial Medical ([id number]) SALOME RX 3.0 x Medtronic 1 [id number] 449421 7526716 753614 5 [id number] 15 stent ([id number]) TR BAND Terumo 1 [id number] 043263 786541 436446 40 Standard ([id number]) Signature Audit [place] Stage Time Signature Unsigned Intra-Procedure 08/08/2017 Thai Cody 10:58:53 AM RT(R) Signatures Monitor : Thai Cody RT Signature : Date : Time : [address] [place] [address]
[~2017-08-08 08:03] MED LIST changes: +ADVAIR 250/501 DISK INH; +BAYER CHEWABLE81 MG PO; +NITROQUICK0.4 MG SL; +TOVIAZ8 MG PO; +TRADJENTA5 MG PO; +ULTRAM50 MG PO; +VITAMIN E400 UNI2 PO
[2017-08-08 08:57] VITALS: BP 134/68; Ht 162.6 cm; Wt 71.4 kg
[2017-08-08 09:14] LABS: BASOPHILS 0.3 % (0-2); EOSINOPHILS 2.7 % (0-7); HEMATOCRIT 41.1 % (36.0-48.0); HEMOGLOBIN 14.8 g/dL (12-16); IMMATURE GRANULOCYTES 0.6 % (0-5); LYMPHOCYTES 28.1 % (15-50); MCV 88.8 fL (80.0-100.0); MEAN PLATELET VOLUME 10.9 fL (7.4-10.4); MONOCYTES 6.9 % (2-11); NEUTROPHILS 61.4 % (40-80); RBC 4.63 10x6/uL (4.00-5.40); RDW 13.2 % (11.5-14.5); WBC 14.9 10x3/uL (4.8-10.8)
[2017-08-08 09:21] LABS: PLATELET COUNT 228 10x3/uL (130-400)
[2017-08-08 09:29] LABS: ANION GAP 18.1 mmol/L (8-16); CALCIUM 9.3 mg/dL (8.5-10.1); CARBON DIOXIDE 23.3 mmol/L (21.0-32.0); CREATININE - SERUM 1.3 mg/dL (0.6-1.3); POTASSIUM - SERUM 3.4 mmol/L (3.5-5.1)
== END 2017-08-08 15:15 | disposition home or self-care (01) ==
LOC: D.CATH 08:03
PROVIDERS: Internal Medicine Interventional Cardiology
DX: I25.110 Atherosclerotic heart disease of native coronary artery with unstable angina pectoris (principal); Z95.5 Presence of coronary angioplasty implant and graft; Z01.812 Encounter for preprocedural laboratory examination

== ENCOUNTER → 2018-03-08 08:21 | Outpatient (CLI) | payer MEDICARE ==
[2017-08-08 08:57] VITALS: BMI 27.0
== END | disposition home or self-care (01) ==
LOC: D.US 08:00
DX: I10 Essential (primary) hypertension (principal); E11.69 Type 2 diabetes mellitus with other specified complication; E78.5 Hyperlipidemia, unspecified; R80.9 Proteinuria, unspecified

== ENCOUNTER → 2018-10-05 15:24 | Outpatient (CLI) | payer MEDICARE ==
[2017-08-08 08:57] VITALS: BMI 27.0
== END | disposition home or self-care (01) ==
LOC: D.LABREF 15:24
PROVIDERS: ATTEND Internal Medicine
DX: N39.0 Urinary tract infection, site not specified (principal)

== ENCOUNTER → 2018-11-02 15:07 | Outpatient (CLI) | payer MEDICARE ==
[2017-08-08 08:57] VITALS: BMI 27.0
== END | disposition home or self-care (01) ==
LOC: D.MAMMO 10-03 10:00 → D.CT 15:07 → D.MAMMO 15:30
PROVIDERS: ATTEND Family Medicine Adult Medicine
DX: Z87.442 Personal history of urinary calculi (principal)